=== PATIENT | female | born 1945 | race Caucasian/White ===

== ENCOUNTER 2022-07-20 12:19 | Emergency (ER) | payer MEDICARE, MEDICAID ==
[~2022-07-20] VITALS: Ht 170.2 cm; Wt 77.7 kg
[2022-07-20 12:27] VITALS: BP_SYST 189
[2022-07-20] MEDS ORDERED: TRAM50TA2 PO (13:31)
== END 2022-07-20 14:04 | disposition home or self-care (01) ==
LOC: ER 12:21
DX: S46.911A Strain of unspecified muscle, fascia and tendon at shoulder and upper arm level, right arm, initial encounter (principal); X58.XXXA Exposure to other specified factors, initial encounter; Y93.89 Activity, other specified; Y92.89 Other specified places as the place of occurrence of the external cause; Y99.8 Other external cause status
CPT/HCPCS: 99283